=== PATIENT | female | born 1960 | race Caucasian/White ===

== ENCOUNTER 2022-02-24 11:33 | Outpatient (CLI) | payer BC | END 2022-02-24 11:34 | disposition home or self-care (01) | LOC: CSHMAMMO 11:33 | PROVIDERS: ATTEND Family Medicine | DX: Z12.31 Encounter for screening mammogram for malignant neoplasm of breast (principal) | CPT/HCPCS: 77063; 77067 ==

== ENCOUNTER 2025-04-07 11:40 | Outpatient (CLI) | payer MEDICARE, OTHER | END 2025-04-07 11:41 | disposition home or self-care (01) | LOC: CSHMAMMO 11:40 | PROVIDERS: ATTEND Nurse Practitioner Family | DX: Z12.31 Encounter for screening mammogram for malignant neoplasm of breast (principal); Z91.89 Other specified personal risk factors, not elsewhere classified | CPT/HCPCS: 77063; 77067 ==